=== PATIENT | male | born 1970 | race Hispanic/Latino ===

== ENCOUNTER 2017-03-03 11:20 | Inpatient (IN) | payer MEDICAID ==
[~2017-03-03] VITALS: Ht 170.2 cm; Wt 77.6 kg
[~2017-03-03 11:20] MED LIST: AMLODIPINE BESY10 MG ORAL; ASPIR 8181 MG ORAL; CLONIDINE 0.2M0.2 MG PO; COZAAR50 MG ORAL; DILTIAZEM 24HR120 M1 ORAL; DILTIAZEM 24HR360 M1 ORAL; FOSRENOL1000 MG PO; FUROSEMIDE80 MG ORAL; GLIPIZIDE5 MG ORAL; HYDRALAZINE HCL50 MG ORAL; LANTUS SOL100 UNIT/1 SUBQ; LOSARTAN POTASS50 MG ORAL; METOCLOPRA10 MG/10 M ORAL; NEPHROVITE1 TAB ORAL; NEXIUM40 M2 ORAL; NORVASC5 MG ORAL; PRAVACHOL20 MG ORAL; RENAGEL400 MG ORAL; RENVELA0.8 GM ORAL; TYLENOL650 MG/20. ORAL; ZAROXOLYN5 MG ORAL; ZESTRIL10 M1 ORAL; [UNRECOGNIZED DRUG - OTHER] PO; [UNRECOGNIZED DRUG - OTHER] PO
[2017-03-03 12:19] LABS: BASOPHILS % (AUTO) 1.5 % (0.0-2.0); EOSINOPHILS % (AUTO) 2.8 % (0.0-3.0); LYMPHOCYTES % (AUTO) 11.9 % (20.0-45.0); MEAN CORPUSCULAR HEMOGLOBIN 29.2 PG (27.0-31.0); MEAN CORPUSCULAR HGB CONC 31.3 G/DL (32.0-36.0); MEAN CORPUSCULAR VOLUME 93 FL (80-99); MEAN PLATELET VOLUME 7.1 FL (6.5-10.1); MONOCYTES % (AUTO) 4.8 % (1.0-10.0); PLATELET COUNT 148 K/UL (150-450); RED BLOOD COUNT 3.75 M/UL (4.70-6.10); RED CELL DISTRIBUTION WIDTH 13.9 % (11.6-14.8); WHITE BLOOD COUNT 6.5 K/UL (4.8-10.8)
[2017-03-03 12:32] LABS: INR 1.1 (0.9-1.1)
[2017-03-03 12:37] LABS: TROPONIN I < 0.30 ng/mL (<=0.30)
[2017-03-03 12:40] LABS: CALCIUM 9.1 mg/dL (8.6-10.2); CREATININE 6.7 mg/dL (0.7-1.2); GLOMERULAR FILTRATION RATE 8.9 mL/min (>60); POTASSIUM 4.8 mEQ/L (3.4-4.9)
[2017-03-03 12:50] LABS: CKMB 2.2 ng/mL (< 6.7)
[2017-03-03 13:08] VITALS: BP 181/90
--- NOTE | 2017-03-03 13:44 | Diagnostic Imaging Report ---
Indications: Chest pain Technique: Portable AP chest Findings: Comparison: 06/11/2014 Inspiratory effort has improved. Size of the cardiac silhouette is mildly decreased. Pulmonary vascular redistribution and bilateral interstitial infiltrates are again noted, less severe. No pleural abnormalities demonstrated. IMPRESSION: Bilateral congestive changes, persistent versus recurrent and less severe than on previous exam 3 Alternatively, diffuse interstitial pneumonitis also give this appearance.
[2017-03-03 14:15] VITALS: BP 160/80
[2017-03-03] MEDS ORDERED: Acetaminophen 500mg (ES) tab ORAL ONE (15:30)
--- NOTE | 2017-03-03 15:46 | Emergency Room Report ---
History of Present Illness General Chief Complaint: Chest Pain Source: Patient Present Illness HPI She complains of chest pain that started during dialysis today. He was at rest. He denies recent illness. Denies fever chills. Denies cough or congestion. He denies shortness of breath. He has no other complaints. Allergies: Coded Allergies: No Known Allergies (Unverified , 03/14/14) Patient History Past Medical History: see triage record, DM, HTN, NE, CAD, GERD, CVA/TIA, HIV, renal disease, dialysis Social History: Denies: alcohol use, drug use, smoking Reviewed Nursing Documentation: PMH: Agreed, PSxH: Agreed Nursing Documentation-PMH Hx Cardiac Problems: Yes Hx Hypertension: Yes Hx Pacemaker: No Hx Asthma: No Hx Diabetes: Yes Hx Cancer: No Hx Gastrointestinal Problems: No Hx Dialysis: Yes Hx Neurological Problems: Yes Hx Cerebrovascular Accident: No Hx Seizures: No Hx Dysphasia: Yes - previous during his stroke Review of Systems All Other Systems: negative except mentioned in HPI Physical Exam Vital Signs Date Time Temp Pulse Resp B/P Pulse Ox O2 Delivery O2 Flow Rate FiO2 03/03/17 11:20 98.1 78 155/90 98 Nasal Cannula 2.0 03/03/17 13:08 14 Sp02 EP Interpretation: reviewed, normal General Appearance: no apparent distress, alert, GCS 15, non-toxic Head: normocephalic, atraumatic Eyes: bilateral eye PERRL, bilateral eye normal inspection ENT: hearing grossly normal, normal pharynx, no angioedema, normal voice Neck: full range of motion, supple/symm/no masses Respiratory: chest non-tender, lungs clear, normal breath sounds, speaking full sentences Cardiovascular #1: regular rate, rhythm, no edema Gastrointestinal: normal bowel sounds, non tender, soft, non-distended, no guarding, no rebound Rectal: deferred Musculoskeletal: back normal, normal range of motion Neurologic: alert, oriented x3, responsive, motor strength/tone normal, sensory intact, speech normal Psychiatric: judgement/insight normal, memory normal, mood/affect normal, no suicidal/homicidal ideation Skin: normal color, no rash, warm/dry, well hydrated Medical Decision Making Diagnostic Impression: Primary Impression: Chest pain ER Course This patient presents with nonspecific chest pain. He is high-risk for acute coronary syndrome and unstable angina. Initial workup to include EKG, troponin and chest x-ray show no acute findings. The patient is admitted for further evaluation of his chest pain. Labs Test 03/03/17 11:51 White Blood Count 6.5 K/UL (4.8-10.8) Red Blood Count 3.75 M/UL (4.70-6.10) Hemoglobin 11.0 G/DL (14.2-18.0) Hematocrit 35.0 % (42.0-52.0) Mean Corpuscular Volume 93 FL (80-99) Mean Corpuscular Hemoglobin 29.2 PG (27.0-31.0) Mean Corpuscular Hemoglobin Concent 31.3 G/DL (32.0-36.0) Red Cell Distribution Width 13.9 % (11.6-14.8) Platelet Count 148 K/UL (150-450) Mean Platelet Volume 7.1 FL (6.5-10.1) Neutrophils (%) (Auto) 79.0 % (45.0-75.0) Lymphocytes (%) (Auto) 11.9 % (20.0-45.0) Monocytes (%) (Auto) 4.8 % (1.0-10.0) Eosinophils (%) (Auto) 2.8 % (0.0-3.0) Basophils (%) (Auto) 1.5 % (0.0-2.0) Prothrombin Time 11.0 SEC (9.30-11.50) Prothromb Time International Ratio 1.1 (0.9-1.1) Activated Partial Thromboplast Time 26 SEC (23-33) Sodium Level 138 mEQ/L (135-145) Potassium Level 4.8 mEQ/L (3.4-4.9) Chloride Level 94 mEQ/L (98-107) Carbon Dioxide Level 23 mEQ/L (20-30) Anion Gap 21 (5-15) Blood Urea Nitrogen 35 mg/dL (7-23) Creatinine 6.7 mg/dL (0.7-1.2) Estimat Glomerular Filtration Rate 8.9 mL/min (>60) Glucose Level 204 mg/dL (74-106) Calcium Level 9.1 mg/dL (8.6-10.2) Total Bilirubin 0.5 mg/dL (0.0-1.2) Aspartate Amino Transf (AST/SGOT) 20 U/L (5-40) Alanine Aminotransferase (ALT/SGPT) 11 U/L (3-41) Alkaline Phosphatase 113 U/L (40-129) Total Creatine Kinase 89 U/L (38-174) Creatine Kinase MB 2.2 ng/mL (< 6.7) Creatine Kinase MB Relative Index 2.4 Troponin I < 0.30 ng/mL (<=0.30) Total Protein 8.0 g/dL (6.6-8.7) Albumin 4.1 g/dL (3.5-5.2) Globulin 3.9 g/dL Albumin/Globulin Ratio 1.0 (1.0-2.7) EKG Diagnostic Results Rate: normal Rhythm: NSR ST Segments: other Other Impression NSST findings. Rhythm Strip Diag. Results EP Interpretation: yes Rate: 90's Rhythm: NSR, no PVC's, no ectopy Chest X-Ray Diagnostic Results EP Interpretation: Yes Findings: no consolidation, no effusion, no pneumothorax Number of Views: 1 Other Impression Bilateral mild pulmonary congestion. Last Vital Signs Date Time Temp Pulse Resp B/P Pulse Ox O2 Delivery O2 Flow Rate FiO2 03/03/17 14:15 98.1 95 16 160/80 99 Room Air 03/03/17 11:20 2.0 Disposition: ADMITTED INPATIENT Condition: Stable Referrals: NON PHYSICIAN (PCP) BIMAL FIGUEROA D.O. Mar 03, 2017 15:46
[2017-03-03] MEDS ORDERED: UNOBMED (17:56)
[2017-03-03 17:57] VITALS: BP 177/86
[2017-03-03] MEDS ORDERED: Mylanta II UD 30ml ORAL PRN (19:00)
[2017-03-03] MEDS ORDERED: Zolpidem 5mg tab ORAL PRN (19:00)
[2017-03-03] MEDS ORDERED: Miralax 17gm pkt ORAL PRN (19:00)
[2017-03-03] MEDS ORDERED: DuoNeb 0.5-3(2.5)mg/3ml neb HHN PRN (19:00)
[2017-03-03] MEDS ORDERED: Morphine Sulfate 2mg/ml Inj IVP PRN (19:00)
[2017-03-03 20:00] VITALS: BP 168/95
[2017-03-03] MEDS: Heparin 5000 units/ml inj SUBQ SCH (20:39)
[2017-03-03] MEDS: NovoLOG Insulin Flexpen SUBQ SCH (20:42)
[2017-03-03 20:51] LABS: TROPONIN I < 0.30 ng/mL (<=0.30)
[2017-03-04] VITALS: BP 145/86
[2017-03-04 04:00] VITALS: BP 157/89
[2017-03-04] MEDS: NovoLOG Insulin Flexpen SUBQ SCH ×4 (05:33→21:04)
[2017-03-04 07:43] VITALS: BP 158/96
[2017-03-04 07:43] LABS: BASOPHILS % (AUTO) 1.7 % (0.0-2.0); EOSINOPHILS % (AUTO) 4.6 % (0.0-3.0); LYMPHOCYTES % (AUTO) 21.2 % (20.0-45.0); MEAN CORPUSCULAR HEMOGLOBIN 29.6 PG (27.0-31.0); MEAN CORPUSCULAR HGB CONC 31.4 G/DL (32.0-36.0); MEAN CORPUSCULAR VOLUME 94 FL (80-99); MONOCYTES % (AUTO) 5.5 % (1.0-10.0); NEUTROPHILS % (AUTO) 67.1 % (45.0-75.0); PLATELET COUNT 137 K/UL (150-450); RED CELL DISTRIBUTION WIDTH 14.5 % (11.6-14.8); WHITE BLOOD COUNT 4.9 K/UL (4.8-10.8)
[2017-03-04 08:04] LABS: TROPONIN I < 0.30 ng/mL (<=0.30)
[2017-03-04 08:18] LABS: THYROID STIMULATING HORMONE 1.9 uIU/mL (0.300-4.500)
[2017-03-04 08:20] LABS: ALBUMIN/GLOBULIN RATIO 1.2 (1.0-2.7); CALCIUM 9.2 mg/dL (8.6-10.2); CHOLESTEROL/HDL RATIO 3.5 (3.3-4.4); CREATININE 8.5 mg/dL (0.7-1.2); GLOMERULAR FILTRATION RATE 6.7 mL/min (>60); POTASSIUM 5.5 mEQ/L (3.4-4.9); TOTAL PROTEIN 7.5 g/dL (6.6-8.7)
[2017-03-04 08:52] LABS: HEMOGLOBIN A1C 9.8 % (< 6.0)
[2017-03-04] MEDS: Losartan 50mg tab ORAL SCH (09:00)
[2017-03-04] MEDS: Heparin 5000 units/ml inj SUBQ SCH ×2 (09:00→21:03)
[2017-03-04] MEDS: Diltiazem CD 120mg cap ORAL SCH (09:02)
--- NOTE | 2017-03-04 10:59 | Consultation ---
Consult Note Consult Note asked to evaluate for dialysis management Chief Complaint: Chest Pain She complains of chest pain that started during dialysis today. He was at rest. He denies recent illness. Denies fever chills. Denies cough or congestion. He denies shortness of breath. He has no other complaints. Allergies: Coded Allergies: No Known Allergies (Unverified , 03/14/14) Past Medical History: see triage record, DM, HTN, MT, CAD, GERD, CVA/TIA, HIV, renal disease, dialysis Social History: Denies: alcohol use, drug use, smoking Reviewed Nursing Documentation: PMH: Agreed, PSxH: Agreed Nursing Documentation-PMH Hx Cardiac Problems: Yes Hx Hypertension: Yes Hx Diabetes: Yes Hx Dialysis: Yes Hx Neurological Problems: Yes Hx Dysphasia: Yes - previous during his stroke patient interviewed, examined data reviewed Assessment/Plan status: ESRD HTN DM HIV CVA MT Plan : HD in [place] M[place] Mar 04, 2017 10:59
[2017-03-04 11:29] VITALS: BP 155/92
[2017-03-04] MEDS ORDERED: Sodium Polystyrene Sulfonate 15gm Powder ORAL ONE (12:00)
--- NOTE | 2017-03-04 15:09 | History and Physical ---
History of Present Illness General Date patient seen: Mar 04, 2017 Reason for Hospitalization: Chest Pain Present Illness HPI 47 year old male with hx of ESRD, on HD, HIV, presented to [facility] with CC of chest pain that started during dialysis. He was at rest. He denies recent illness. Denies fever chills. Denies cough or congestion. He denies shortness of breath. He has no other complaints. He is admitted to telemetry for further evaluation. Allergies: Coded Allergies: No Known Allergies (Unverified , 03/14/14) Medication History Scheduled Diltiazem Hcl* (Diltiazem 24HR Er*), 360 MG ORAL DAILY, (Reported) Lanthanum Carbonate (Fosrenol), 1,000 MG PO AC, (Reported) Losartan Potassium* (Cozaar*), 100 MG ORAL DAILY, (Reported) Metoclopramide Hcl* (Metoclopramide Hcl*), 10 MG ORAL ACHS, (Reported) Sevelamer HCl (Renagel), 800 MG ORAL THREE TIMES A DAY, (Reported) Vitamin B Cmplx/Vit C/Folic AC (Nephro-Lakshmi Tablet), 1 TAB ORAL DAILY, (Reported ) [Keynard], 81 PO DAILY, (Reported) [travastatin], 40 MG PO HS, (Reported) Discontinued Medications Unable to Obtain Medications (Unable To Obtain Meds), (Reported) Discontinued Reason: Therapy completed Patient History Healthcare decision maker Resuscitation status Full Code Advanced Directive on File Past Medical/Surgical History Past Medical/Surgical History: (1) HTN (hypertension) (2) ESRD (end stage renal disease) on dialysis Review of Systems All Other Systems: negative except mentioned in HPI Physical Exam General Appearance: WD/WN Lines, tubes and drains: peripheral HEENT: normocephalic, anicteric Neck: non-tender, normal alignment Respiratory/Chest: chest wall non-tender, lungs clear Cardiovascular/Chest: normal peripheral pulses, normal rate Abdomen: normal bowel sounds, non tender Last 24 Hour Vital Signs Date Time Temp Pulse Resp B/P Pulse Ox O2 Delivery O2 Flow Rate FiO2 03/04/17 11:29 97.0 75 20 155/92 100 Room Air 03/04/17 09:02 67 158/96 03/04/17 09:00 158/96 03/04/17 08:00 69 03/04/17 07:43 97.3 67 18 158/96 98 Room Air 03/04/17 04:00 97.9 69 18 157/89 98 Room Air 2.0 03/04/17 04:00 67 03/04/17 02:54 78 18 Room Air 03/04/17 00:00 97.9 68 16 145/86 98 Mechanical Ventilator 2.0 03/04/17 00:00 66 03/03/17 20:41 168/95 03/03/17 20:00 97.9 78 16 168/95 98 Room Air 2.0 03/03/17 18:17 98.1 74 12 177/86 98 Room Air 2.0 03/03/17 17:57 98.1 74 12 177/86 98 Room Air 03/03/17 17:55 98.1 Intake and Output 03/03/17 03/04/17 19:00 07:00 # Voids 1 # Bowel Movements 1 Laboratory Tests Test 03/03/17 20:00 03/04/17 06:35 Troponin I < 0.30 ng/mL (<=0.30) < 0.30 ng/mL (<=0.30) White Blood Count 4.9 K/UL (4.8-10.8) Red Blood Count 3.40 M/UL (4.70-6.10) L Hemoglobin 10.1 G/DL (14.2-18.0) L Hematocrit 32.1 % (42.0-52.0) L Mean Corpuscular Volume 94 FL (80-99) Mean Corpuscular Hemoglobin 29.6 PG (27.0-31.0) Mean Corpuscular Hemoglobin Concent 31.4 G/DL (32.0-36.0) L Red Cell Distribution Width 14.5 % (11.6-14.8) Platelet Count 137 K/UL (150-450) L Mean Platelet Volume 7.0 FL (6.5-10.1) Neutrophils (%) (Auto) 67.1 % (45.0-75.0) Lymphocytes (%) (Auto) 21.2 % (20.0-45.0) Monocytes (%) (Auto) 5.5 % (1.0-10.0) Eosinophils (%) (Auto) 4.6 % (0.0-3.0) H Basophils (%) (Auto) 1.7 % (0.0-2.0) Sodium Level 141 mEQ/L (135-145) Potassium Level 5.5 mEQ/L (3.4-4.9) H Chloride Level 95 mEQ/L (98-107) L Carbon Dioxide Level 26 mEQ/L (20-30) Anion Gap 20 (5-15) H Blood Urea Nitrogen 47 mg/dL (7-23) H Creatinine 8.5 mg/dL (0.7-1.2) H Estimat Glomerular Filtration Rate 6.7 mL/min (>60) Glucose Level 130 mg/dL (74-106) H Hemoglobin A1c 9.8 % (< 6.0) H Calcium Level 9.2 mg/dL (8.6-10.2) Phosphorus Level 4.4 mg/dL (2.5-4.8) Total Bilirubin 0.5 mg/dL (0.0-1.2) Aspartate Amino Transf (AST/SGOT) 15 U/L (5-40) Alanine Aminotransferase (ALT/SGPT) 11 U/L (3-41) Alkaline Phosphatase 100 U/L (40-129) Total Protein 7.5 g/dL (6.6-8.7) Albumin 4.2 g/dL (3.5-5.2) Globulin 3.3 g/dL Albumin/Globulin Ratio 1.2 (1.0-2.7) Triglycerides Level 130 mg/dL (< 150) Cholesterol Level 95 mg/dL (< 200) LDL Cholesterol 42 mg/dL (60-99) L HDL Cholesterol 27 mg/dL (> 60) Cholesterol/HDL Ratio 3.5 (3.3-4.4) Thyroid Stimulating Hormone (TSH) 1.900 uIU/mL (0.300-4.500) Height (Feet): 5 Height (Inches): 7.00 Weight (Pounds): 171 Medications Current Medications Medications (Trade) Dose Ordered Sig/Kj Route PRN Reason Start Time Stop Time Status Last Admin Dose Admin Acetaminophen (Tylenol) 650 mg Q4H PRN ORAL fever 03/03/17 19:00 04/02/17 18:59 Albuterol/ Ipratropium (DuoNeb 0.5-3(2.5)mg/3ml) 3 ml Q6HRT PRN HHN dyspnea 03/03/17 19:00 03/08/17 18:59 Clonidine HCl (Catapres) 0.1 mg Q4H PRN ORAL SBP > 160 03/03/17 19:00 04/02/17 18:59 03/03/17 20:41 Dextrose (Dextrose 50%) STAT PRN IV Hypoglycemia 03/03/17 19:00 04/02/17 18:59 Diltiazem HCl (Cardizem CD) 360 mg DAILY ORAL 03/04/17 09:00 04/03/17 08:59 03/04/17 09:02 Heparin Sodium (Porcine) (Heparin 5000 units/ml) 5,000 units EVERY 12 HOURS SUBQ 03/03/17 21:00 04/02/17 20:59 03/03/17 20:39 Insulin Aspart (NovoLOG) BEFORE MEALS AND HS SUBQ 03/03/17 21:00 04/02/17 20:59 03/04/17 11:27 Losartan Potassium (Cozaar) 100 mg DAILY ORAL 03/04/17 09:00 04/03/17 08:59 03/04/17 09:00 Metoclopramide HCl (Reglan) 10 mg QHS ORAL 03/04/17 21:00 04/03/17 20:59 Morphine Sulfate (Morphine Sulfate) 1 mg Q4H PRN IVP PAIN 4-10 03/03/17 19:00 03/10/17 18:59 Ondansetron HCl (Zofran) 4 mg Q6H PRN IVP Nausea & Vomiting 03/03/17 19:00 04/02/17 18:59 Polyethylene Glycol (Miralax) 17 gm HSPRN PRN ORAL Constipation 03/03/17 19:00 04/02/17 18:59 Sevelamer Carbonate (Renvela) 1,600 mg THREE TIMES A DAY ORAL 03/04/17 13:00 04/03/17 12:59 03/04/17 11:59 Zolpidem Tartrate (Ambien) 5 mg HSPRN PRN ORAL Insomnia 03/03/17 19:00 04/02/17 18:59 Assessment/Plan Problem List: (1) Chest pain ICD Codes: R07.9 - Chest pain, unspecified SNOMED: 85736895 (2) Anemia in chronic renal disease ICD Codes: D63.1 - Anemia in chronic kidney disease; N03.9 - Anemia in chronic renal disease SNOMED: 813003711 (3) HTN (hypertension) ICD Codes: I10 - HTN (hypertension) SNOMED: 68178273 (4) ESRD (end stage renal disease) on dialysis Assessment/Plan serial ekg Hd cardio to see serial troponin, check echo LEVAR HOWARD Mar 04, 2017 15:09
[2017-03-04 15:34] VITALS: BP 150/91
--- NOTE | 2017-03-04 18:29 | Cardiology Progress Note ---
Assessment/Plan Assessment/Plan cp atypic prolonged yet no myonecroisis cad ? pci recently dm htn hyperlipidmiea hs esrd echo to be reviewed norml wall motion in light of rf adn recent pci and pt claim of similarity of pain to prior cp will have perfusion iamgin aracelis ist is entirely possible that this pain is chest wall related n9oted t iversion infeiro leads [id number] Objective Last 24 Hour Vital Signs Date Time Temp Pulse Resp B/P Pulse Ox O2 Delivery O2 Flow Rate FiO2 03/04/17 16:00 62 03/04/17 15:34 97.9 64 18 150/91 97 Room Air 03/04/17 12:00 65 03/04/17 11:29 97.0 75 20 155/92 100 Room Air 03/04/17 09:02 67 158/96 03/04/17 09:00 158/96 03/04/17 08:00 69 03/04/17 07:43 97.3 67 18 158/96 98 Room Air 03/04/17 04:00 97.9 69 18 157/89 98 Room Air 2.0 03/04/17 04:00 67 03/04/17 02:54 78 18 Room Air 03/04/17 00:00 97.9 68 16 145/86 98 Mechanical Ventilator 2.0 03/04/17 00:00 66 03/03/17 20:41 168/95 03/03/17 20:00 97.9 78 16 168/95 98 Room Air 2.0 Intake and Output 03/03/17 03/04/17 19:00 07:00 # Voids 1 # Bowel Movements 1 Laboratory Tests Test 03/03/17 20:00 03/04/17 06:35 Troponin I < 0.30 ng/mL (<=0.30) < 0.30 ng/mL (<=0.30) White Blood Count 4.9 K/UL (4.8-10.8) Red Blood Count 3.40 M/UL (4.70-6.10) L Hemoglobin 10.1 G/DL (14.2-18.0) L Hematocrit 32.1 % (42.0-52.0) L Mean Corpuscular Volume 94 FL (80-99) Mean Corpuscular Hemoglobin 29.6 PG (27.0-31.0) Mean Corpuscular Hemoglobin Concent 31.4 G/DL (32.0-36.0) L Red Cell Distribution Width 14.5 % (11.6-14.8) Platelet Count 137 K/UL (150-450) L Mean Platelet Volume 7.0 FL (6.5-10.1) Neutrophils (%) (Auto) 67.1 % (45.0-75.0) Lymphocytes (%) (Auto) 21.2 % (20.0-45.0) Monocytes (%) (Auto) 5.5 % (1.0-10.0) Eosinophils (%) (Auto) 4.6 % (0.0-3.0) H Basophils (%) (Auto) 1.7 % (0.0-2.0) Sodium Level 141 mEQ/L (135-145) Potassium Level 5.5 mEQ/L (3.4-4.9) H Chloride Level 95 mEQ/L (98-107) L Carbon Dioxide Level 26 mEQ/L (20-30) Anion Gap 20 (5-15) H Blood Urea Nitrogen 47 mg/dL (7-23) H Creatinine 8.5 mg/dL (0.7-1.2) H Estimat Glomerular Filtration Rate 6.7 mL/min (>60) Glucose Level 130 mg/dL (74-106) H Hemoglobin A1c 9.8 % (< 6.0) H Calcium Level 9.2 mg/dL (8.6-10.2) Phosphorus Level 4.4 mg/dL (2.5-4.8) Total Bilirubin 0.5 mg/dL (0.0-1.2) Aspartate Amino Transf (AST/SGOT) 15 U/L (5-40) Alanine Aminotransferase (ALT/SGPT) 11 U/L (3-41) Alkaline Phosphatase 100 U/L (40-129) Total Protein 7.5 g/dL (6.6-8.7) Albumin 4.2 g/dL (3.5-5.2) Globulin 3.3 g/dL Albumin/Globulin Ratio 1.2 (1.0-2.7) Triglycerides Level 130 mg/dL (< 150) Cholesterol Level 95 mg/dL (< 200) LDL Cholesterol 42 mg/dL (60-99) L HDL Cholesterol 27 mg/dL (> 60) Cholesterol/HDL Ratio 3.5 (3.3-4.4) Thyroid Stimulating Hormone (TSH) 1.900 uIU/mL (0.300-4.500) JUANITA RAE Mar 04, 2017 18:29
[2017-03-04] MEDS ORDERED: Renagel 400mg cap ORAL SCH (19:30)
[2017-03-04 20:17] VITALS: BP 145/84
[2017-03-05] VITALS (10 sets, daily range): BP systolic 148–173; BP diastolic 85–100
--- NOTE | 2017-03-05 00:38 | Consultation ---
DATE OF CONSULTATION: 03/04/2017 CARDIOLOGY CONSULTATION CONSULTING PHYSICIAN: Ronnell Daniel M.D. REFERRING PHYSICIAN: Oswaldo Guzman M.D. REASON FOR REFERRAL: Chest pain. HISTORY OF PRESENT ILLNESS: This is an elderly gentleman, whose information is obtained from the patient directly and from reviewing old charts and one of the nursing staff, who speaks Zimbabwean, has interpreted. The patient does speak some Slovak. Apparently, the patient came into the hospital because of pain that has been going on since Thursday, most of the time Thursday and Thursday, although improved and then it came back again. It is on the left side of the chest and that seemed to get worse when he takes a deep breath or cough or twist or turns or he is touching that area. It is not necessarily when walking. He has similar pain he states a month ago when he was presented to the outside hospital and was told that he has had a heart attack. He was subsequently transferred to another hospital where he had some kind of a cardiac procedure performed, although he is not sure what was done. Nevertheless, he thinks it was a blood vessel that was clogged up and they opened. So, he may have had a percutaneous coronary intervention. He does not have any PND. He does have occasional dizziness, shortness of breath, but that is not frequent. He has occasional dizziness when he sits or stands up. He does not really have any heart pounding or palpitations. The pain was a constant sensation, sharp on the left side of the chest, but he thinks it is similar to what he had when he presented to the other hospital with a heart attack. PAST MEDICAL HISTORY: Positive for diabetes, high blood pressure, high cholesterol, and heart attack. No cancer. No stroke. No hepatitis or tuberculosis. No asthma or emphysema. No ulcers. He does have end-stage renal disease, on hemodialysis for approximately 9 years. No liver problems. No thyroid problems. His past medical history also is positive for history of orthostatic symptoms, C. difficile colitis, previous history of questionable systolic dysfunction based on echocardiogram, but not by perfusion imaging and history of cerebrovascular accident number of years ago. I have apparently seen this patient approximately three years ago. ALLERGIES: He is not allergic to any medications. SOCIAL HISTORY: He does not smoke at the present time, although he used to before. He does not drink alcoholic beverages. No drug use. REVIEW OF SYSTEMS: Gastrointestinal: He has had a lot of nausea yesterday, but no vomiting, no diarrhea, but he had frequent bowel movement yesterday. Genitourinary: He does not make any urine. Pulmonary: He has some coughing. Constitutional: No fever, chills, or night sweats. Neurologic: No numbness or tingling sensation. No paralysis in the arms or legs. PHYSICAL EXAMINATION: GENERAL: Shows to be elderly gentleman, blind. NECK: Supple. No jugular venous distention. LUNGS: Appear to be clear to auscultation and percussion. CARDIAC: S1 is normal. S2 is normal. Regular rate and rhythm. No heaves, thrills, gallops, or rubs are noted. The patient's chest wall is tender to palpation, not clear whether this is the same pain that he has been experiencing since yesterday or not, however. ABDOMEN: Soft and nontender. Positive bowel sounds. EXTREMITIES: There is no clubbing, cyanosis, nor is there any edema. NEUROLOGIC: He is awake, alert, responsive, and in no apparent respiratory distress. LABORATORY AND DIAGNOSTIC DATA: White count 4.9, hemoglobin 10.1, and platelet count of 137,000. His chemistry panel, sodium is 141, potassium 5.5, chloride 95, bicarb 26, BUN of 47, creatinine 8.5, glucose of 130, calcium 9.2. Liver function tests are normal. Three sets of cardiac enzymes, all are negative. The total cholesterol of 95 with a LDL of 42 and HDL of 27. TSH of 1.9. Phosphorus is 4.2. Coags, INR 1.1 and a PTT of 26. A chest x-ray performed yesterday shows bilateral congestive changes, less severe and prior interstitial pneumonitis also is a possibility in the differential. The patient's electrocardiogram shows normal sinus rhythm with T-wave inversions in lead 2, 3, and aVF that have been present on this EKG today. These EKG changes are actually new compared to the EKG that was performed back in May of 2014. ASSESSMENT: 1. Atypical chest pain with prolonged, yet no evidence of myonecrosis. 2. Coronary artery disease with questionable recent percutaneous coronary intervention. 3. Diabetes mellitus. 4. Hypertension. 5. Hyperlipidemia. 6. End-stage renal disease, on hemodialysis. PLAN: Dr. Guzman, this patient was seen in cardiac consultation. The patient's chest wall is tender to palpation, however, not clear if this is the pain that he has been experiencing since Thursday. Nevertheless, despite the fact that he has had a prolonged episode of chest pain for approximately two days, the cardiac enzymes are negative. The EKG shows some abnormality that is new. I think we should proceed in the direction of the perfusion imaging to identify whether there is any significant ischemia requiring recurrent PCI. Ronnell Daniel M.D. DR: GREGORIO JOB#: [id number] CC:
[2017-03-05] MEDS: NovoLOG Insulin Flexpen SUBQ SCH ×4 (06:37→22:43)
[2017-03-05] MEDS: Heparin 5000 units/ml inj SUBQ SCH ×2 (09:00→22:30)
[2017-03-05] MEDS: Losartan 50mg tab ORAL SCH (09:00)
[2017-03-05] MEDS: Diltiazem CD 120mg cap ORAL SCH (09:00)
[2017-03-05 09:49] LABS: TROPONIN I 3.59 ng/mL (<=0.30)
[2017-03-05] MEDS: Aspirin Baby 81mg ORAL SCH (11:25)
--- NOTE | 2017-03-05 12:09 | General Progress Note ---
Assessment/Plan Status: stable Assessment/Plan status; - ESRD - HTN - Anemia of CKD - DM - ?? HIV - CVA - SD Plan: HD and UFis in process Subjective ROS Limited/Unobtainable: No Constitutional: Reports: malaise Allergies: Coded Allergies: No Known Allergies (Unverified , 03/14/14) Objective Last 24 Hour Vital Signs Date Time Temp Pulse Resp B/P Pulse Ox O2 Delivery O2 Flow Rate FiO2 03/05/17 09:47 80 03/05/17 08:42 97.3 69 18 156/98 97 Room Air 03/05/17 07:40 Room Air 03/05/17 04:25 97.5 63 20 148/88 96 Room Air 03/05/17 04:00 61 03/05/17 00:15 97.9 66 20 154/89 96 Room Air 03/05/17 00:00 68 03/04/17 20:17 97.7 62 20 145/84 97 Room Air 03/04/17 20:00 63 03/04/17 19:49 63 18 Room Air 03/04/17 16:00 62 03/04/17 15:34 97.9 64 18 150/91 97 Room Air Intake and Output 03/04/17 03/05/17 19:00 07:00 Intake Total 360 ml Balance 360 ml Intake Oral 360 ml # Bowel Movements 5 Laboratory Tests 03/05/17 09:15: Troponin I 3.59*H Height (Feet): 5 Height (Inches): 7.00 Weight (Pounds): 171 General Appearance: no apparent distress Cardiovascular: normal rate Respiratory/Chest: decreased breath sounds Abdomen: distended GERA NICOLE Mar 05, 2017 12:09
--- NOTE | 2017-03-05 12:27 | Pulmonology Progress Note ---
Assessment/Plan Problems: (1) Chest pain (2) Anemia in chronic renal disease (3) HTN (hypertension) (4) ESRD (end stage renal disease) on dialysis Assessment/Plan stress test canceled because of positive troponin Plavix started f/u cardio recommendations HD bu nephrology Subjective ROS Limited/Unobtainable: No Interval Events: troponin jumped to 3, asymptomatic Allergies: Coded Allergies: No Known Allergies (Unverified , 03/14/14) Objective Last 24 Hour Vital Signs Date Time Temp Pulse Resp B/P Pulse Ox O2 Delivery O2 Flow Rate FiO2 03/05/17 09:47 80 03/05/17 08:42 97.3 69 18 156/98 97 Room Air 03/05/17 07:40 Room Air 03/05/17 04:25 97.5 63 20 148/88 96 Room Air 03/05/17 04:00 61 03/05/17 00:15 97.9 66 20 154/89 96 Room Air 03/05/17 00:00 68 03/04/17 20:17 97.7 62 20 145/84 97 Room Air 03/04/17 20:00 63 03/04/17 19:49 63 18 Room Air 03/04/17 16:00 62 03/04/17 15:34 97.9 64 18 150/91 97 Room Air Intake and Output 03/04/17 03/05/17 19:00 07:00 Intake Total 360 ml Balance 360 ml Intake Oral 360 ml # Bowel Movements 5 General Appearance: WD/WN HEENT: normocephalic, atraumatic Respiratory/Chest: chest wall non-tender, lungs clear Cardiovascular: normal peripheral pulses, normal rate Abdomen: normal bowel sounds, soft, non tender Genitourinary: normal external genitalia Extremities: no cyanosis Skin: no rash 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, no motor/sensory deficits Laboratory Tests 03/05/17 09:15: Troponin I 3.59*H Current Medications Medications (Trade) Dose Ordered Sig/Kj Route PRN Reason Start Time Stop Time Status Last Admin Dose Admin Acetaminophen (Tylenol) 650 mg Q4H PRN ORAL fever 03/03/17 19:00 04/02/17 18:59 03/04/17 17:57 Albuterol/ Ipratropium (DuoNeb 0.5-3(2.5)mg/3ml) 3 ml Q6HRT PRN HHN dyspnea 03/03/17 19:00 03/08/17 18:59 Aspirin (ASA) 81 mg DAILY ORAL 03/05/17 11:00 04/04/17 10:59 03/05/17 11:25 Clonidine HCl (Catapres) 0.1 mg Q4H PRN ORAL SBP > 160 03/03/17 19:00 04/02/17 18:59 03/03/17 20:41 Clopidogrel Bisulfate (Plavix) 75 mg DAILY ORAL 03/05/17 11:00 04/04/17 10:59 03/05/17 11:25 Dextrose (Dextrose 50%) STAT PRN IV Hypoglycemia 03/03/17 19:00 04/02/17 18:59 Diltiazem HCl (Cardizem CD) 360 mg DAILY ORAL 03/04/17 09:00 04/03/17 08:59 03/04/17 09:02 Heparin Sodium (Porcine) (Heparin 5000 units/ml) 5,000 units EVERY 12 HOURS SUBQ 03/03/17 21:00 04/02/17 20:59 03/04/17 21:03 Insulin Aspart (NovoLOG) BEFORE MEALS AND HS SUBQ 03/03/17 21:00 04/02/17 20:59 03/05/17 06:37 Losartan Potassium (Cozaar) 100 mg DAILY ORAL 03/04/17 09:00 04/03/17 08:59 03/04/17 09:00 Metoclopramide HCl (Reglan) 10 mg QHS ORAL 03/04/17 21:00 04/03/17 20:59 03/04/17 20:58 Morphine Sulfate (Morphine Sulfate) 1 mg Q4H PRN IVP PAIN 4-10 03/03/17 19:00 03/10/17 18:59 Ondansetron HCl (Zofran) 4 mg Q6H PRN IVP Nausea & Vomiting 03/03/17 19:00 04/02/17 18:59 Polyethylene Glycol (Miralax) 17 gm HSPRN PRN ORAL Constipation 03/03/17 19:00 04/02/17 18:59 Sevelamer Carbonate (Renvela) 1,600 mg THREE TIMES A DAY ORAL 03/04/17 13:00 04/03/17 12:59 03/04/17 17:56 Zolpidem Tartrate (Ambien) 5 mg HSPRN PRN ORAL Insomnia 03/03/17 19:00 04/02/17 18:59 LEVAR HOWARD Mar 05, 2017 12:27
[2017-03-05 17:05] LABS: TROPONIN I < 0.30 ng/mL (<=0.30)
--- NOTE | 2017-03-05 17:37 | Cardiology Progress Note ---
Assessment/Plan Assessment/Plan 1. Atypical chest pain with prolonged, trop peak 3.59 thsi am suggestive of NSTEMI 2. Coronary artery disease with questionable recent percutaneous coronary intervention. 3. Diabetes mellitus. 4. Hypertension. 5. Hyperlipidemia. 6. End-stage renal disease, on hemodialysis. echo to be reviewed norml wall motion rn called me trop no 2 increased to 3.59 so stres test cancelled pt to be transferred to cath facility 3rd trop now completely normal that would be very unusual for trop to go form 3.59 to less than 0.3 in that short time i suspect one of the 2 lab erroneous have asked for repeat level now and to see if able to rerun trop form ealier today asa and plavix statin bp is still sig elevated will dc cozaar and start on either stronger arbs (not available here) or acei lisinopril already on max dose of dilt d/ rn adn dr mckeon Subjective Cardiovascular: Reports: chest pain - some cp earlier to day , Denies: lightheadedness, palpitations Respiratory: Denies: shortness of breath Gastrointestinal/Abdominal: Denies: abdomen distended Objective Last 24 Hour Vital Signs Date Time Temp Pulse Resp B/P Pulse Ox O2 Delivery O2 Flow Rate FiO2 03/05/17 17:16 161/84 03/05/17 16:00 70 03/05/17 15:41 96.3 77 18 160/90 95 Room Air 03/05/17 14:00 76 18 157/86 98 Room Air 03/05/17 13:20 79 18 170/92 77 Room Air 03/05/17 12:42 173/100 03/05/17 12:30 80 18 173/100 97 Room Air 03/05/17 12:19 97.0 78 18 162/85 98 Room Air 03/05/17 12:00 82 03/05/17 11:15 Room Air 03/05/17 09:47 80 03/05/17 08:42 97.3 69 18 156/98 97 Room Air 03/05/17 07:40 Room Air 03/05/17 04:25 97.5 63 20 148/88 96 Room Air 03/05/17 04:00 61 03/05/17 00:15 97.9 66 20 154/89 96 Room Air 03/05/17 00:00 68 03/04/17 20:17 97.7 62 20 145/84 97 Room Air 03/04/17 20:00 63 03/04/17 19:49 63 18 Room Air General Appearance: no apparent distress, alert Neck: supple Cardiovascular: normal rate, regular rhythm Respiratory/Chest: lungs clear Abdomen: normal bowel sounds, non tender, soft Extremities: no swelling Intake and Output 03/04/17 03/05/17 19:00 07:00 Intake Total 360 ml Balance 360 ml Intake Oral 360 ml # Bowel Movements 5 Laboratory Tests Test 03/05/17 09:15 03/05/17 16:00 Troponin I 3.59 ng/mL (<=0.30) *H < 0.30 ng/mL (<=0.30) HIV (1&2) Antibody Rapid Negative (NEGATIVE) JUANITA RAE Mar 05, 2017 17:37
[2017-03-05 20:36] LABS: TROPONIN I < 0.30 ng/mL (<=0.30)
[2017-03-06 00:08] VITALS: BP 155/90
[2017-03-06 00:37] LABS: TROPONIN I < 0.30 ng/mL (<=0.30)
[2017-03-06 04:40] VITALS: BP 155/90
[2017-03-06] MEDS: NovoLOG Insulin Flexpen SUBQ SCH ×4 (06:03→21:11)
[2017-03-06 08:01] VITALS: BP 148/87
[2017-03-06] MEDS: Heparin 5000 units/ml inj SUBQ SCH ×2 (09:00→21:12)
[2017-03-06] MEDS: Aspirin Baby 81mg ORAL SCH (09:39)
[2017-03-06] MEDS: Diltiazem CD 120mg cap ORAL SCH (09:40)
[2017-03-06] MEDS: Losartan 50mg tab ORAL SCH (09:41)
--- NOTE | 2017-03-06 09:48 | General Progress Note ---
Assessment/Plan Assessment/Plan status; - ESRD - HTN - Anemia of CKD - DM - CVA - [place] Plan: HD in am- HIV negative Subjective ROS Limited/Unobtainable: No Allergies: Coded Allergies: No Known Allergies (Unverified , 03/14/14) Objective Last 24 Hour Vital Signs Date Time Temp Pulse Resp B/P Pulse Ox O2 Delivery O2 Flow Rate FiO2 03/06/17 09:41 148/87 03/06/17 09:40 66 148/87 03/06/17 08:01 96.8 66 20 148/87 97 Room Air 03/06/17 04:40 97.9 66 20 155/90 95 Room Air 03/06/17 04:00 61 03/06/17 00:08 97.9 66 20 155/90 95 Room Air 03/06/17 00:00 63 03/05/17 20:14 74 18 Room Air 21 03/05/17 20:00 66 03/05/17 20:00 97.9 71 20 159/89 97 Room Air 03/05/17 18:07 76 18 154/94 97 Room Air 03/05/17 17:16 161/84 03/05/17 16:00 70 03/05/17 15:41 96.3 77 18 160/90 95 Room Air 03/05/17 14:00 76 18 157/86 98 Room Air 03/05/17 13:20 79 18 170/92 97 Room Air 03/05/17 12:42 173/100 03/05/17 12:30 80 18 173/100 97 Room Air 03/05/17 12:19 97.0 78 18 162/85 98 Room Air 03/05/17 12:00 82 03/05/17 11:15 Room Air 03/05/17 09:47 80 Intake and Output 03/05/17 03/06/17 19:00 07:00 Intake Total 240 ml Output Total 3247 ml Balance -3007 ml Intake Oral 240 ml Output Stool Total 2 ml Hemodialysis UF 3245 ml # Voids 1 # Bowel Movements 1 Laboratory Tests 03/05/17 16:00: Troponin I < 0.30, HIV (1&2) Antibody Rapid Negative 03/05/17 19:30: Troponin I < 0.30 03/05/17 23:40: Troponin I < 0.30 Height (Feet): 5 Height (Inches): 7.00 Weight (Pounds): 171 General Appearance: no apparent distress Objective no change in PE GERA NICOLE Mar 06, 2017 09:48
[2017-03-06 11:21] VITALS: BP 153/90
--- NOTE | 2017-03-06 13:20 | Cardiology Report ---
APPROVED REPORT EKG Measurement Heart [id number] Normal sinus rhythm Rightward axis T wave abnormality, consider inferior ischemia Prolonged QT Abnormal ECG
[2017-03-06 15:27] VITALS: BP 138/67
[2017-03-06] MEDS ORDERED: PLAVIX75 MG ORAL (15:36)
--- NOTE | 2017-03-06 15:41 | Pulmonology Progress Note ---
Assessment/Plan Problems: (1) Chest pain (2) Anemia in chronic renal disease (3) HTN (hypertension) (4) ESRD (end stage renal disease) on dialysis Assessment/Plan needs to have stress testing. Plavix started f/u cardio recommendations HD bu nephrology Subjective ROS Limited/Unobtainable: No Constitutional: Reports: no symptoms HEENT: Repors: no symptoms Respiratory: Reports: no symptoms Cardiovascular: Reports: no symptoms Allergies: Coded Allergies: No Known Allergies (Unverified , 03/14/14) Objective Last 24 Hour Vital Signs Date Time Temp Pulse Resp B/P Pulse Ox O2 Delivery O2 Flow Rate FiO2 03/06/17 15:27 97.2 53 20 138/67 96 Room Air 03/06/17 12:00 68 03/06/17 11:21 97.7 68 20 153/90 97 Room Air 03/06/17 09:41 148/87 03/06/17 09:40 66 148/87 03/06/17 08:01 96.8 66 20 148/87 97 Room Air 03/06/17 08:00 70 03/06/17 04:40 97.9 66 20 155/90 95 Room Air 03/06/17 04:00 61 03/06/17 00:08 97.9 66 20 155/90 95 Room Air 03/06/17 00:00 63 03/05/17 20:14 74 18 Room Air 21 03/05/17 20:00 66 03/05/17 20:00 97.9 71 20 159/89 97 Room Air 03/05/17 18:07 76 18 154/94 97 Room Air 03/05/17 17:16 161/84 03/05/17 16:00 70 03/05/17 15:41 96.3 77 18 160/90 95 Room Air Intake and Output 03/05/17 03/06/17 19:00 07:00 Intake Total 240 ml Output Total 3247 ml Balance -3007 ml Intake Oral 240 ml Output Stool Total 2 ml Hemodialysis UF 3245 ml # Voids 1 # Bowel Movements 1 General Appearance: WD/WN HEENT: normocephalic, atraumatic Respiratory/Chest: chest wall non-tender, lungs clear Cardiovascular: normal peripheral pulses, normal rate Abdomen: normal bowel sounds, soft, non tender Genitourinary: normal external genitalia Extremities: no cyanosis Skin: no rash 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 Lymphatic: no neck adenopathy Microbiology Date/Time Source Procedure Growth Status 03/05/17 20:00 Stool Clostridium difficile Toxin Assay - Final Complete Laboratory Tests 03/05/17 16:00: Troponin I < 0.30, HIV (1&2) Antibody Rapid Negative 03/05/17 19:30: Troponin I < 0.30 03/05/17 23:40: Troponin I < 0.30 Current Medications Medications (Trade) Dose Ordered Sig/Kj Route PRN Reason Start Time Stop Time Status Last Admin Dose Admin Acetaminophen (Tylenol) 650 mg Q4H PRN ORAL fever 03/03/17 19:00 04/02/17 18:59 03/06/17 14:54 Albuterol/ Ipratropium (DuoNeb 0.5-3(2.5)mg/3ml) 3 ml Q6HRT PRN HHN dyspnea 03/03/17 19:00 03/08/17 18:59 Aspirin (ASA) 81 mg DAILY ORAL 03/05/17 11:00 04/04/17 10:59 03/06/17 09:39 Clonidine HCl (Catapres) 0.1 mg Q4H PRN ORAL SBP > 160 03/03/17 19:00 04/02/17 18:59 03/05/17 17:16 Clopidogrel Bisulfate (Plavix) 75 mg DAILY ORAL 03/05/17 11:00 04/04/17 10:59 03/06/17 09:41 Dextrose (Dextrose 50%) STAT PRN IV Hypoglycemia 03/03/17 19:00 04/02/17 18:59 Diltiazem HCl (Cardizem CD) 360 mg DAILY ORAL 03/04/17 09:00 04/03/17 08:59 03/06/17 09:40 Heparin Sodium (Porcine) (Heparin 5000 units/ml) 5,000 units EVERY 12 HOURS SUBQ 03/03/17 21:00 04/02/17 20:59 03/05/17 22:30 Insulin Aspart (NovoLOG) BEFORE MEALS AND HS SUBQ 03/03/17 21:00 04/02/17 20:59 03/06/17 11:43 Losartan Potassium (Cozaar) 100 mg DAILY ORAL 03/04/17 09:00 04/03/17 08:59 03/06/17 09:41 Metoclopramide HCl (Reglan) 10 mg QHS ORAL 03/04/17 21:00 04/03/17 20:59 03/05/17 22:29 Morphine Sulfate (Morphine Sulfate) 1 mg Q4H PRN IVP PAIN 4-10 03/03/17 19:00 03/10/17 18:59 Ondansetron HCl (Zofran) 4 mg Q6H PRN IVP Nausea & Vomiting 03/03/17 19:00 04/02/17 18:59 Polyethylene Glycol (Miralax) 17 gm HSPRN PRN ORAL Constipation 03/03/17 19:00 04/02/17 18:59 Sevelamer Carbonate (Renvela) 1,600 mg THREE TIMES A DAY ORAL 03/04/17 13:00 04/03/17 12:59 03/06/17 12:25 Zolpidem Tartrate (Ambien) 5 mg HSPRN PRN ORAL Insomnia 03/03/17 19:00 04/02/17 18:59 LEVAR HOWARD Mar 06, 2017 15:41
--- NOTE | 2017-03-06 18:51 | Cardiology Progress Note ---
Assessment/Plan Assessment/Plan 1. Atypical chest pain with prolonged, trop peak 3.59 thsi am suggestive of NSTEMI 2. Coronary artery disease with questionable recent percutaneous coronary intervention. 3. Diabetes mellitus. 4. Hypertension. 5. Hyperlipidemia. 6. End-stage renal disease, on hemodialysis. echo to be reviewed norml wall motion rn called me trop no 2 increased to 3.59 so stres test cancelled pt to be transferred to cath facility 3rd trop now completely normal as well as 4th that would be very unusual for trop to go form 3.59 to less than 0.3 in that short time ? error asa and plavix statin bp is still sig elevated will dc cozaar and start on either stronger arbs (not available here) or acei lisinopril already on max dose of dilt d/w acceptin gphysica at [facility] about the pt as well as the labs for /? cath Subjective Cardiovascular: Denies: chest pain - min todya , palpitations Respiratory: Denies: shortness of breath Gastrointestinal/Abdominal: Denies: abdominal pain Genitourinary: Denies: no symptoms Objective Last 24 Hour Vital Signs Date Time Temp Pulse Resp B/P Pulse Ox O2 Delivery O2 Flow Rate FiO2 03/06/17 15:27 97.2 53 20 138/67 96 Room Air 03/06/17 12:00 68 03/06/17 11:21 97.7 68 20 153/90 97 Room Air 03/06/17 09:41 148/87 03/06/17 09:40 66 148/87 03/06/17 08:01 96.8 66 20 148/87 97 Room Air 03/06/17 08:00 70 03/06/17 04:40 97.9 66 20 155/90 95 Room Air 03/06/17 04:00 61 03/06/17 00:08 97.9 66 20 155/90 95 Room Air 03/06/17 00:00 63 03/05/17 20:14 74 18 Room Air 21 03/05/17 20:00 66 03/05/17 20:00 97.9 71 20 159/89 97 Room Air General Appearance: alert Neck: supple Cardiovascular: normal rate, regular rhythm Respiratory/Chest: lungs clear, normal breath sounds Abdomen: normal bowel sounds, non tender, soft Extremities: no swelling Intake and Output 03/05/17 03/06/17 19:00 07:00 Intake Total 240 ml Output Total 3247 ml Balance -3007 ml Intake Oral 240 ml Output Stool Total 2 ml Hemodialysis UF 3245 ml # Voids 1 # Bowel Movements 1 Laboratory Tests Test 03/05/17 19:30 03/05/17 23:40 Troponin I < 0.30 ng/mL (<=0.30) < 0.30 ng/mL (<=0.30) Microbiology Date/Time Source Procedure Growth Status 03/05/17 20:00 Stool Clostridium difficile Toxin Assay - Final Complete JUANITA RAE Mar 06, 2017 18:51
[2017-03-06 20:00] VITALS: BP 137/80
[2017-03-07] VITALS (7 sets, daily range): BP systolic 145–177; BP diastolic 76–99
[2017-03-07] MEDS: NovoLOG Insulin Flexpen SUBQ SCH ×4 (06:08→22:14)
[2017-03-07 07:45] LABS: BASOPHILS % (AUTO) 1.9 % (0.0-2.0); EOSINOPHILS % (AUTO) 3.7 % (0.0-3.0); LYMPHOCYTES % (AUTO) 18.9 % (20.0-45.0); MEAN CORPUSCULAR HEMOGLOBIN 29.3 PG (27.0-31.0); MEAN CORPUSCULAR HGB CONC 31.1 G/DL (32.0-36.0); MEAN CORPUSCULAR VOLUME 94 FL (80-99); MEAN PLATELET VOLUME 6.6 FL (6.5-10.1); MONOCYTES % (AUTO) 6.3 % (1.0-10.0); NEUTROPHILS % (AUTO) 69.3 % (45.0-75.0); PLATELET COUNT 168 K/UL (150-450); RED BLOOD COUNT 3.69 M/UL (4.70-6.10); RED CELL DISTRIBUTION WIDTH 14.5 % (11.6-14.8); WHITE BLOOD COUNT 6.2 K/UL (4.8-10.8)
[2017-03-07 07:56] LABS: ALBUMIN/GLOBULIN RATIO 1.3 (1.0-2.7); CALCIUM 9.5 mg/dL (8.6-10.2); CREATININE 9.7 mg/dL (0.7-1.2); GLOMERULAR FILTRATION RATE 5.8 mL/min (>60); MAGNESIUM 2.6 mg/dL (1.7-2.5); PHOSPHORUS 6.2 mg/dL (2.5-4.8); TOTAL PROTEIN 8.1 g/dL (6.6-8.7)
[2017-03-07 08:20] LABS: POTASSIUM 6.5 mEQ/L (3.4-4.9)
[2017-03-07 08:23] LABS: URIC ACID 7.1 MG/DL (2.6-7.2)
[2017-03-07] MEDS: Aspirin Baby 81mg ORAL SCH (09:30)
[2017-03-07] MEDS: Losartan 50mg tab ORAL SCH (09:30)
[2017-03-07] MEDS: Heparin 5000 units/ml inj SUBQ SCH ×2 (09:30→22:13)
[2017-03-07] MEDS: Diltiazem CD 120mg cap ORAL SCH (09:30)
--- NOTE | 2017-03-07 10:57 | General Progress Note ---
Assessment/Plan Status: stable Status Narrative On HD now Assessment/Plan status; - ESRD - HTN - Anemia of CKD - DM - CVA - [place] Plan: HD in process HIV negative Subjective ROS Limited/Unobtainable: No Allergies: Coded Allergies: No Known Allergies (Unverified , 03/14/14) Objective Last 24 Hour Vital Signs Date Time Temp Pulse Resp B/P Pulse Ox O2 Delivery O2 Flow Rate FiO2 03/07/17 08:10 Room Air 03/07/17 08:00 97.0 70 20 165/92 96 Room Air 03/07/17 07:51 70 03/07/17 04:00 54 03/07/17 04:00 97.3 59 18 158/97 97 Room Air 03/07/17 00:00 97.7 55 18 145/76 98 Room Air 2.0 21 03/07/17 00:00 56 03/06/17 20:00 97.3 53 18 137/80 98 Room Air 03/06/17 20:00 52 03/06/17 19:11 62 18 Room Air 21 03/06/17 16:00 68 03/06/17 15:27 97.2 53 20 138/67 96 Room Air 03/06/17 12:00 68 03/06/17 11:21 97.7 68 20 153/90 97 Room Air Intake and Output 03/06/17 03/07/17 19:00 07:00 Intake Total 550 ml 120 ml Output Total 0 ml Balance 550 ml 120 ml Intake Oral 550 ml 120 ml Output Urine Total 0 ml Laboratory Tests 03/07/17 06:35: White Blood Count 6.2, Red Blood Count 3.69L, Hemoglobin 10.8L, Hematocrit 34.7L , Mean Corpuscular Volume 94, Mean Corpuscular Hemoglobin 29.3, Mean Corpuscular Hemoglobin Concent 31.1L, Red Cell Distribution Width 14.5, Platelet Count 168, Mean Platelet Volume 6.6, Neutrophils (%) (Auto) 69.3, Lymphocytes (%) (Auto) 18.9L, Monocytes (%) (Auto) 6.3, Eosinophils (%) (Auto) 3.7H, Basophils (%) (Auto) 1.9, Sodium Level 139, Potassium Level 6.5*H, Chloride Level 92L, Carbon Dioxide Level 24, Anion Gap 23H, Blood Urea Nitrogen 66H, Creatinine 9.7H, Estimat Glomerular Filtration Rate 5.8, Glucose Level 108H , Uric Acid 7.1, Calcium Level 9.5, Phosphorus Level 6.2H, Magnesium Level 2.6H , Total Bilirubin 0.6, Aspartate Amino Transf (AST/SGOT) 18, Alanine Aminotransferase (ALT/SGPT) 12, Alkaline Phosphatase 104, Pro-B-Type Natriuretic Peptide 88509V, Total Protein 8.1, Albumin 4.7, Globulin 3.4, Albumin/Globulin Ratio 1.3 Height (Feet): 5 Height (Inches): 7.00 Weight (Pounds): 171 General Appearance: no apparent distress Objective no change in PE GERA NICOLE Mar 07, 2017 10:57
[2017-03-07] MEDS ORDERED: Tubing IV Secondary IV ONE (14:46)
[2017-03-07] MEDS ORDERED: NS 275ml ONE (14:46)
--- NOTE | 2017-03-07 14:50 | Pulmonology Progress Note ---
Assessment/Plan Assessment/Plan ASSESSMENT chest pain possible NSTEMI CAD DM HTN HLD ESRD, on HD anemia of chronic renal disease hyperkalemia PLAN OF CARE tele last 3 troponin negative cardio follows per cardio; prolonged, troponin peak possibly indicated NSTEMI awaiting for transfer to [facility] for cardiac cath on ASA, Plavix, statin lipid panel stable ECHO with EF 60-65% and RVSP of 27 BS management with SS of insulin HD as per nephro, monitor renal parameters, lytes DVT prophylaxis monitor HH, at baseline K-6.5 today, had HD today, K free bath, check BMP in am awaiting for transfer for cardiac cath case discussed and evaluated by supervising physician Subjective Allergies: Coded Allergies: No Known Allergies (Unverified , 03/14/14) Subjective currently denies chest pain, SOB, one troponin positive, 3 prior and 3 subsequent all negative K-6.5 today Objective Last 24 Hour Vital Signs Date Time Temp Pulse Resp B/P Pulse Ox O2 Delivery O2 Flow Rate FiO2 03/07/17 12:00 97.5 83 20 154/76 95 Room Air 03/07/17 11:45 Room Air 03/07/17 08:10 Room Air 03/07/17 08:00 97.0 70 20 165/92 96 Room Air 03/07/17 07:51 70 03/07/17 04:00 54 03/07/17 04:00 97.3 59 18 158/97 97 Room Air 03/07/17 00:00 97.7 55 18 145/76 98 Room Air 2.0 21 03/07/17 00:00 56 03/06/17 20:00 97.3 53 18 137/80 98 Room Air 03/06/17 20:00 52 03/06/17 19:11 62 18 Room Air 21 03/06/17 16:00 68 03/06/17 15:27 97.2 53 20 138/67 96 Room Air Intake and Output 03/06/17 03/07/17 19:00 07:00 Intake Total 550 ml 120 ml Output Total 0 ml Balance 550 ml 120 ml Intake Oral 550 ml 120 ml Output Urine Total 0 ml General Appearance: WD/WN, no acute distress HEENT: normocephalic, atraumatic, anicteric, mucous membranes moist Respiratory/Chest: normal breath sounds, no respiratory distress, no accessory muscle use Cardiovascular: normal peripheral pulses, normal rate, regular rhythm - SR on tele with ST depression Abdomen: normal bowel sounds, no organomegaly, non distended Genitourinary: normal external genitalia Extremities: no edema, pedal pulses normal Neurologic/Psychiatric: alert, oriented x 3, responsive Musculoskeletal: normal muscle bulk Microbiology Date/Time Source Procedure Growth Status 03/05/17 20:00 Stool Clostridium difficile Toxin Assay - Final Complete Laboratory Tests 03/07/17 06:35: White Blood Count 6.2, Red Blood Count 3.69L, Hemoglobin 10.8L, Hematocrit 34.7L , Mean Corpuscular Volume 94, Mean Corpuscular Hemoglobin 29.3, Mean Corpuscular Hemoglobin Concent 31.1L, Red Cell Distribution Width 14.5, Platelet Count 168, Mean Platelet Volume 6.6, Neutrophils (%) (Auto) 69.3, Lymphocytes (%) (Auto) 18.9L, Monocytes (%) (Auto) 6.3, Eosinophils (%) (Auto) 3.7H, Basophils (%) (Auto) 1.9, Sodium Level 139, Potassium Level 6.5*H, Chloride Level 92L, Carbon Dioxide Level 24, Anion Gap 23H, Blood Urea Nitrogen 66H, Creatinine 9.7H, Estimat Glomerular Filtration Rate 5.8, Glucose Level 108H , Uric Acid 7.1, Calcium Level 9.5, Phosphorus Level 6.2H, Magnesium Level 2.6H , Total Bilirubin 0.6, Aspartate Amino Transf (AST/SGOT) 18, Alanine Aminotransferase (ALT/SGPT) 12, Alkaline Phosphatase 104, Pro-B-Type Natriuretic Peptide 45166Y, Total Protein 8.1, Albumin 4.7, Globulin 3.4, Albumin/Globulin Ratio 1.3 Current Medications Medications (Trade) Dose Ordered Sig/Kj Route PRN Reason Start Time Stop Time Status Last Admin Dose Admin Acetaminophen (Tylenol) 650 mg Q4H PRN ORAL fever 03/03/17 19:00 04/02/17 18:59 03/06/17 14:54 Albuterol/ Ipratropium (DuoNeb 0.5-3(2.5)mg/3ml) 3 ml Q6HRT PRN HHN dyspnea 03/03/17 19:00 03/08/17 18:59 Aspirin (ASA) 81 mg DAILY ORAL 03/05/17 11:00 04/04/17 10:59 03/06/17 09:39 Clonidine HCl (Catapres) 0.1 mg Q4H PRN ORAL SBP > 160 03/03/17 19:00 04/02/17 18:59 03/05/17 17:16 Clopidogrel Bisulfate (Plavix) 75 mg DAILY ORAL 03/05/17 11:00 04/04/17 10:59 03/06/17 09:41 Dextrose (Dextrose 50%) STAT PRN IV Hypoglycemia 03/03/17 19:00 04/02/17 18:59 Diltiazem HCl (Cardizem CD) 360 mg DAILY ORAL 03/04/17 09:00 04/03/17 08:59 03/06/17 09:40 Heparin Sodium (Porcine) (Heparin 5000 units/ml) 5,000 units EVERY 12 HOURS SUBQ 03/03/17 21:00 04/02/17 20:59 03/06/17 21:12 Insulin Aspart (NovoLOG) BEFORE MEALS AND HS SUBQ 03/03/17 21:00 04/02/17 20:59 03/07/17 12:51 Losartan Potassium (Cozaar) 100 mg DAILY ORAL 03/04/17 09:00 04/03/17 08:59 03/06/17 09:41 Metoclopramide HCl (Reglan) 10 mg QHS ORAL 03/04/17 21:00 04/03/17 20:59 03/06/17 21:09 Morphine Sulfate (Morphine Sulfate) 1 mg Q4H PRN IVP PAIN 4-10 03/03/17 19:00 03/10/17 18:59 Ondansetron HCl (Zofran) 4 mg Q6H PRN IVP Nausea & Vomiting 03/03/17 19:00 04/02/17 18:59 Polyethylene Glycol (Miralax) 17 gm HSPRN PRN ORAL Constipation 03/03/17 19:00 04/02/17 18:59 Sevelamer Carbonate (Renvela) 1,600 mg THREE TIMES A DAY ORAL 03/04/17 13:00 04/03/17 12:59 03/07/17 12:49 Zolpidem Tartrate (Ambien) 5 mg HSPRN PRN ORAL Insomnia 03/03/17 19:00 04/02/17 18:59 Plata (Vanchtein),Irena ARELLANO Mar 07, 2017 14:50
--- NOTE | 2017-03-07 15:02 | Cardiology Progress Note ---
Assessment/Plan Assessment/Plan chest pain, hgih risk patient, but free of chest pain at this moment hyperlaemia, patient is on HD, nephrology is aware discussed with nurse Subjective Subjective the patient had mild discomfort on the left side this morning but now he denies any chest pain has dyspnea when laying down Objective Last 24 Hour Vital Signs Date Time Temp Pulse Resp B/P Pulse Ox O2 Delivery O2 Flow Rate FiO2 03/07/17 12:00 97.5 83 20 154/76 95 Room Air 03/07/17 11:45 Room Air 03/07/17 08:10 Room Air 03/07/17 08:00 97.0 70 20 165/92 96 Room Air 03/07/17 07:51 70 03/07/17 04:00 54 03/07/17 04:00 97.3 59 18 158/97 97 Room Air 03/07/17 00:00 97.7 55 18 145/76 98 Room Air 2.0 21 03/07/17 00:00 56 03/06/17 20:00 97.3 53 18 137/80 98 Room Air 03/06/17 20:00 52 03/06/17 19:11 62 18 Room Air 21 03/06/17 16:00 68 03/06/17 15:27 97.2 53 20 138/67 96 Room Air General Appearance: no apparent distress, other EENT: other - left eye is blind Neck: no JVD Rhythm: NSR Cardiovascular: regular rhythm Respiratory/Chest: normal breath sounds Abdomen: non tender, distended Extremities: non-tender, other - left aqrm dialysis fistula Intake and Output 03/06/17 03/07/17 19:00 07:00 Intake Total 550 ml 120 ml Output Total 0 ml Balance 550 ml 120 ml Intake Oral 550 ml 120 ml Output Urine Total 0 ml Laboratory Tests Test 03/07/17 06:35 White Blood Count 6.2 K/UL (4.8-10.8) Red Blood Count 3.69 M/UL (4.70-6.10) L Hemoglobin 10.8 G/DL (14.2-18.0) L Hematocrit 34.7 % (42.0-52.0) L Mean Corpuscular Volume 94 FL (80-99) Mean Corpuscular Hemoglobin 29.3 PG (27.0-31.0) Mean Corpuscular Hemoglobin Concent 31.1 G/DL (32.0-36.0) L Red Cell Distribution Width 14.5 % (11.6-14.8) Platelet Count 168 K/UL (150-450) Mean Platelet Volume 6.6 FL (6.5-10.1) Neutrophils (%) (Auto) 69.3 % (45.0-75.0) Lymphocytes (%) (Auto) 18.9 % (20.0-45.0) L Monocytes (%) (Auto) 6.3 % (1.0-10.0) Eosinophils (%) (Auto) 3.7 % (0.0-3.0) H Basophils (%) (Auto) 1.9 % (0.0-2.0) Sodium Level 139 mEQ/L (135-145) Potassium Level 6.5 mEQ/L (3.4-4.9) *H Chloride Level 92 mEQ/L (98-107) L Carbon Dioxide Level 24 mEQ/L (20-30) Anion Gap 23 (5-15) H Blood Urea Nitrogen 66 mg/dL (7-23) H Creatinine 9.7 mg/dL (0.7-1.2) H Estimat Glomerular Filtration Rate 5.8 mL/min (>60) Glucose Level 108 mg/dL (74-106) H Uric Acid 7.1 MG/DL (2.6-7.2) Calcium Level 9.5 mg/dL (8.6-10.2) Phosphorus Level 6.2 mg/dL (2.5-4.8) H Magnesium Level 2.6 mg/dL (1.7-2.5) H Total Bilirubin 0.6 mg/dL (0.0-1.2) Aspartate Amino Transf (AST/SGOT) 18 U/L (5-40) Alanine Aminotransferase (ALT/SGPT) 12 U/L (3-41) Alkaline Phosphatase 104 U/L (40-129) Pro-B-Type Natriuretic Peptide 37287 pg/mL (0-125) H Total Protein 8.1 g/dL (6.6-8.7) Albumin 4.7 g/dL (3.5-5.2) Globulin 3.4 g/dL Albumin/Globulin Ratio 1.3 (1.0-2.7) Microbiology Date/Time Source Procedure Growth Status 03/05/17 20:00 Stool Clostridium difficile Toxin Assay - Final Complete JOSERAVI Mar 07, 2017 15:02
[2017-03-08] VITALS (7 sets, daily range): BP systolic 114–167; BP diastolic 64–90
[2017-03-08] MEDS: NovoLOG Insulin Flexpen SUBQ SCH ×4 (06:32→20:54)
[2017-03-08 09:06] LABS: CALCIUM 9.2 mg/dL (8.6-10.2); CREATININE 7.7 mg/dL (0.7-1.2); GLOMERULAR FILTRATION RATE 7.6 mL/min (>60); POTASSIUM 5.7 mEQ/L (3.4-4.9)
[2017-03-08] MEDS: Losartan 50mg tab ORAL SCH (09:35)
[2017-03-08] MEDS: Aspirin Baby 81mg ORAL SCH (09:35)
[2017-03-08] MEDS: Diltiazem CD 120mg cap ORAL SCH (09:35)
[2017-03-08] MEDS: Heparin 5000 units/ml inj SUBQ SCH ×2 (09:36→20:55)
[2017-03-08] MEDS ORDERED: Sodium Polystyrene Sulfonate 15gm Powder ORAL ONE (11:15)
--- NOTE | 2017-03-08 12:39 | General Progress Note ---
Assessment/Plan Status: stable Status Narrative K elevated Assessment/Plan status; - ESRD - HTN - Anemia of CKD - DM - CVA - [place] Plan: HD in [facility] now Per consultants- DC planning?? Subjective ROS Limited/Unobtainable: No Constitutional: Reports: malaise Allergies: Coded Allergies: No Known Allergies (Unverified , 03/14/14) Objective Last 24 Hour Vital Signs Date Time Temp Pulse Resp B/P Pulse Ox O2 Delivery O2 Flow Rate FiO2 03/08/17 09:35 144/78 03/08/17 09:35 63 144/78 03/08/17 08:20 71 03/08/17 08:00 97.0 63 18 144/78 99 Room Air 03/08/17 04:09 97.3 67 20 141/82 98 Room Air 03/08/17 04:00 67 03/08/17 03:41 155/72 03/08/17 01:45 167/90 03/08/17 00:00 97.5 79 20 167/90 98 Room Air 03/07/17 20:00 98.0 80 20 160/88 98 Room Air 03/07/17 19:07 72 20 Room Air 21 03/07/17 19:07 98.1 03/07/17 17:53 166/96 03/07/17 17:45 95 166/96 03/07/17 16:00 98.1 85 20 158/99 98 Room Air Intake and Output 03/07/17 03/08/17 19:00 07:00 Intake Total 720 ml 120 ml Output Total 2500 ml Balance -1780 ml 120 ml Intake Oral 720 ml 120 ml Hemodialysis UF 2500 ml # Bowel Movements 3 Laboratory Tests 03/08/17 07:40: Sodium Level 142, Potassium Level 5.7H, Chloride Level 98, Carbon Dioxide Level 24, Anion Gap 20H, Blood Urea Nitrogen 56H, Creatinine 7.7H, Estimat Glomerular Filtration Rate 7.6, Glucose Level 102, Calcium Level 9.2 Height (Feet): 5 Height (Inches): 7.00 Weight (Pounds): 171 General Appearance: no apparent distress Objective no change in PE GERA NICOLE Mar 08, 2017 12:39
--- NOTE | 2017-03-08 15:49 | Pulmonology Progress Note ---
Assessment/Plan Assessment/Plan ASSESSMENT chest pain possible NSTEMI CAD DM HTN HLD ESRD, on HD anemia of chronic renal disease hyperkalemia PLAN OF CARE tele last 3 troponin negative cardio follows per cardio; prolonged, troponin peak possibly indicated NSTEMI awaiting for transfer to [facility] for cardiac cath on ASA, Plavix, statin lipid panel stable ECHO with EF 60-65% and RVSP of 27 BS management with SS of insulin HD as per nephro, monitor renal parameters, lytes DVT prophylaxis monitor HH, at baseline K-5.7 today, per nephro management awaiting for transfer for cardiac cath case discussed and evaluated by supervising physician Subjective Allergies: Coded Allergies: No Known Allergies (Unverified , 03/14/14) Subjective currently denies chest pain, SOB, chest pain last night one troponin positive, 3 prior and 3 subsequent all negative K-5.7 today Objective Last 24 Hour Vital Signs Date Time Temp Pulse Resp B/P Pulse Ox O2 Delivery O2 Flow Rate FiO2 03/08/17 12:00 96.4 78 19 136/74 Nasal Cannula 03/08/17 11:44 68 03/08/17 09:35 144/78 03/08/17 09:35 63 144/78 03/08/17 08:20 71 03/08/17 08:00 97.0 63 18 144/78 99 Room Air 03/08/17 04:09 97.3 67 20 141/82 98 Room Air 03/08/17 04:00 67 03/08/17 03:41 155/72 03/08/17 01:45 167/90 03/08/17 00:00 97.5 79 20 167/90 98 Room Air 03/07/17 20:00 98.0 80 20 160/88 98 Room Air 03/07/17 19:07 72 20 Room Air 21 03/07/17 19:07 98.1 03/07/17 17:53 166/96 03/07/17 17:45 95 166/96 03/07/17 16:00 98.1 85 20 158/99 98 Room Air Intake and Output 03/07/17 03/08/17 19:00 07:00 Intake Total 720 ml 120 ml Output Total 2500 ml Balance -1780 ml 120 ml Intake Oral 720 ml 120 ml Hemodialysis UF 2500 ml # Bowel Movements 3 Objective General Appearance: WD/WN, no acute distress HEENT: normocephalic, atraumatic, anicteric, mucous membranes moist Respiratory/Chest: normal breath sounds, no respiratory distress, no accessory muscle use Cardiovascular: normal peripheral pulses, normal rate, regular rhythm - SR on tele with ST depression Abdomen: normal bowel sounds, no organomegaly, non distended Genitourinary: normal external genitalia Extremities: no edema, pedal pulses normal Neurologic/Psychiatric: alert, oriented x 3, responsive Musculoskeletal: normal muscle bulk Microbiology Date/Time Source Procedure Growth Status 03/05/17 20:00 Stool Clostridium difficile Toxin Assay - Final Complete Laboratory Tests 03/08/17 07:40: Sodium Level 142, Potassium Level 5.7H, Chloride Level 98, Carbon Dioxide Level 24, Anion Gap 20H, Blood Urea Nitrogen 56H, Creatinine 7.7H, Estimat Glomerular Filtration Rate 7.6, Glucose Level 102, Calcium Level 9.2 Current Medications Medications (Trade) Dose Ordered Sig/Kj Route PRN Reason Start Time Stop Time Status Last Admin Dose Admin Acetaminophen (Tylenol) 650 mg Q4H PRN ORAL Mild Pain/Temp > 100.5 03/07/17 19:00 04/06/17 18:59 03/07/17 18:08 Albuterol/ Ipratropium (DuoNeb 0.5-3(2.5)mg/3ml) 3 ml Q6HRT PRN HHN dyspnea 03/03/17 19:00 03/08/17 18:59 Aspirin (ASA) 81 mg DAILY ORAL 03/05/17 11:00 04/04/17 10:59 03/08/17 09:35 Clonidine HCl (Catapres) 0.1 mg Q4H PRN ORAL SBP > 160 03/03/17 19:00 04/02/17 18:59 03/08/17 01:45 Clopidogrel Bisulfate (Plavix) 75 mg DAILY ORAL 03/05/17 11:00 04/04/17 10:59 03/08/17 09:35 Dextrose (Dextrose 50%) STAT PRN IV Hypoglycemia 03/03/17 19:00 04/02/17 18:59 Diltiazem HCl (Cardizem CD) 360 mg DAILY ORAL 03/04/17 09:00 04/03/17 08:59 03/08/17 09:35 Heparin Sodium (Porcine) (Heparin 5000 units/ml) 5,000 units EVERY 12 HOURS SUBQ 03/03/17 21:00 04/02/17 20:59 03/08/17 09:36 Insulin Aspart (NovoLOG) BEFORE MEALS AND HS SUBQ 03/03/17 21:00 04/02/17 20:59 03/08/17 11:45 Losartan Potassium (Cozaar) 100 mg DAILY ORAL 03/04/17 09:00 04/03/17 08:59 03/08/17 09:35 Metoclopramide HCl (Reglan) 10 mg QHS ORAL 03/04/17 21:00 04/03/17 20:59 03/07/17 22:12 Morphine Sulfate (Morphine Sulfate) 1 mg Q4H PRN IVP PAIN 4-10 03/03/17 19:00 03/10/17 18:59 Ondansetron HCl (Zofran) 4 mg Q6H PRN IVP Nausea & Vomiting 03/03/17 19:00 04/02/17 18:59 Polyethylene Glycol (Miralax) 17 gm HSPRN PRN ORAL Constipation 03/03/17 19:00 04/02/17 18:59 Sevelamer Carbonate (Renvela) 1,600 mg THREE TIMES A DAY ORAL 03/04/17 13:00 04/03/17 12:59 03/08/17 13:34 Zolpidem Tartrate (Ambien) 5 mg HSPRN PRN ORAL Insomnia 03/03/17 19:00 04/02/17 18:59 Irena Plata NP (Vanchtein) Mar 08, 2017 15:49
[2017-03-08] MEDS ORDERED: DuoNeb 0.5-3(2.5)mg/3ml neb HHN PRN (16:00)
[2017-03-08] MEDS ORDERED: Morphine Sulfate 2mg/ml Inj IVP PRN (16:00)
--- NOTE | 2017-03-08 17:03 | Cardiology Progress Note ---
Assessment/Plan Assessment/Plan the patient has indications for cardiac cath, high risk and ongoing chest pain, he is being transferred to another hospital. At present is stable without chest pain Subjective Subjective the patient denies any chest pain, he is asking if he will be transferred to another hospital. No dyspnea Objective Last 24 Hour Vital Signs Date Time Temp Pulse Resp B/P Pulse Ox O2 Delivery O2 Flow Rate FiO2 03/08/17 16:00 97.2 113 18 114/64 98 Room Air 03/08/17 12:00 96.4 78 19 136/74 Nasal Cannula 03/08/17 11:44 68 03/08/17 09:35 144/78 03/08/17 09:35 63 144/78 03/08/17 08:20 71 03/08/17 08:00 97.0 63 18 144/78 99 Room Air 03/08/17 04:09 97.3 67 20 141/82 98 Room Air 03/08/17 04:00 67 03/08/17 03:41 155/72 03/08/17 01:45 167/90 03/08/17 00:00 97.5 79 20 167/90 98 Room Air 03/07/17 20:00 98.0 80 20 160/88 98 Room Air 03/07/17 19:07 72 20 Room Air 21 03/07/17 19:07 98.1 03/07/17 17:53 166/96 03/07/17 17:45 95 166/96 General Appearance: no apparent distress, alert, other EENT: other - left eye blind Neck: JVD Rhythm: NSR Cardiovascular: systolic murmur Respiratory/Chest: crackles/rales Abdomen: soft Extremities: other - left wrist fistula Intake and Output 03/07/17 03/08/17 19:00 07:00 Intake Total 720 ml 120 ml Output Total 2500 ml Balance -1780 ml 120 ml Intake Oral 720 ml 120 ml Hemodialysis UF 2500 ml # Bowel Movements 3 Laboratory Tests Test 03/08/17 07:40 Sodium Level 142 mEQ/L (135-145) Potassium Level 5.7 mEQ/L (3.4-4.9) H Chloride Level 98 mEQ/L (98-107) Carbon Dioxide Level 24 mEQ/L (20-30) Anion Gap 20 (5-15) H Blood Urea Nitrogen 56 mg/dL (7-23) H Creatinine 7.7 mg/dL (0.7-1.2) H Estimat Glomerular Filtration Rate 7.6 mL/min (>60) Glucose Level 102 mg/dL (74-106) Calcium Level 9.2 mg/dL (8.6-10.2) Microbiology Date/Time Source Procedure Growth Status 03/05/17 20:00 Stool Clostridium difficile Toxin Assay - Final Complete JOSESANDYE Mar 08, 2017 17:03
[2017-03-09] VITALS: BP 152/97
[2017-03-09 04:00] VITALS: BP 174/99
[2017-03-09] MEDS: NovoLOG Insulin Flexpen SUBQ SCH ×4 (06:00→21:07)
[2017-03-09 08:20] VITALS: BP 168/91
[2017-03-09] MEDS: Aspirin Baby 81mg ORAL SCH (08:36)
[2017-03-09] MEDS: Losartan 50mg tab ORAL SCH (08:37)
[2017-03-09] MEDS: Diltiazem CD 120mg cap ORAL SCH (08:37)
[2017-03-09] MEDS: Heparin 5000 units/ml inj SUBQ SCH ×2 (08:40→21:08)
[2017-03-09 10:46] LABS: BASOPHILS % (AUTO) 1.1 % (0.0-2.0); EOSINOPHILS % (AUTO) 4.3 % (0.0-3.0); LYMPHOCYTES % (AUTO) 19.7 % (20.0-45.0); MEAN CORPUSCULAR HEMOGLOBIN 30.6 PG (27.0-31.0); MEAN CORPUSCULAR HGB CONC 33.4 G/DL (32.0-36.0); MEAN CORPUSCULAR VOLUME 92 FL (80-99); MEAN PLATELET VOLUME 6.2 FL (6.5-10.1); MONOCYTES % (AUTO) 6.1 % (1.0-10.0); NEUTROPHILS % (AUTO) 68.8 % (45.0-75.0); PLATELET COUNT 166 K/UL (150-450); RED BLOOD COUNT 3.22 M/UL (4.70-6.10); RED CELL DISTRIBUTION WIDTH 14.5 % (11.6-14.8); WHITE BLOOD COUNT 4.8 K/UL (4.8-10.8)
[2017-03-09 10:57] LABS: CREATININE 6.1 mg/dL (0.7-1.2); GLOMERULAR FILTRATION RATE 9.9 mL/min (>60); POTASSIUM 3.6 mEQ/L (3.4-4.9)
[2017-03-09 11:38] VITALS: BP 142/79
--- NOTE | 2017-03-09 13:49 | General Progress Note ---
Assessment/Plan Status: stable Assessment/Plan status; - ESRD - HTN - Anemia of CKD - DM - CVA - [place] Plan: HD today done- next 03/11 Per consultants- DC planning?? vs awaiting for transfer to [facility] for cardiac cath Subjective ROS Limited/Unobtainable: No Allergies: Coded Allergies: No Known Allergies (Unverified , 03/14/14) Objective Last 24 Hour Vital Signs Date Time Temp Pulse Resp B/P Pulse Ox O2 Delivery O2 Flow Rate FiO2 03/09/17 11:38 97.5 75 18 142/79 97 Room Air 03/09/17 09:20 Room Air 2.0 21 03/09/17 08:37 168/91 03/09/17 08:37 75 168/91 03/09/17 08:20 97.0 75 18 168/91 95 Room Air 03/09/17 08:00 77 03/09/17 07:50 79 20 Room Air 21 03/09/17 07:11 176/90 03/09/17 06:31 Room Air 2.0 21 03/09/17 04:40 Room Air 2.0 21 03/09/17 04:00 97.7 67 20 174/99 95 Room Air 03/09/17 04:00 70 03/09/17 00:00 97.7 67 20 152/97 98 Room Air 03/09/17 00:00 64 03/08/17 20:00 66 03/08/17 20:00 97.5 63 20 150/89 98 Room Air 03/08/17 18:42 68 20 Room Air 21 03/08/17 16:10 63 03/08/17 16:00 97.2 113 18 114/64 98 Room Air Intake and Output 03/08/17 03/09/17 19:00 07:00 Intake Total 240 ml Balance 240 ml Intake Oral 240 ml # Voids 2 # Bowel Movements 4 Laboratory Tests 03/09/17 09:40: White Blood Count 4.8, Red Blood Count 3.22L, Hemoglobin 9.9L, Hematocrit 29.5L , Mean Corpuscular Volume 92, Mean Corpuscular Hemoglobin 30.6, Mean Corpuscular Hemoglobin Concent 33.4, Red Cell Distribution Width 14.5, Platelet Count 166, Mean Platelet Volume 6.2L, Neutrophils (%) (Auto) 68.8, Lymphocytes ( %) (Auto) 19.7L, Monocytes (%) (Auto) 6.1, Eosinophils (%) (Auto) 4.3H, Basophils (%) (Auto) 1.1, Sodium Level 141, Potassium Level 3.6, Chloride Level 91L, Carbon Dioxide Level 28, Anion Gap 22H, Blood Urea Nitrogen 42H, Creatinine 6.1H, Estimat Glomerular Filtration Rate 9.9, Glucose Level 122H, Calcium Level 9.0 Height (Feet): 5 Height (Inches): 7.00 Weight (Pounds): 171 General Appearance: no apparent distress Objective no change in PE GERA NICOLE March 09, 2017 13:49
[2017-03-09 15:35] VITALS: BP 106/61
--- NOTE | 2017-03-09 18:07 | Cardiology Progress Note ---
Assessment/Plan Assessment/Plan 1. Atypical chest pain with prolonged, trop peak 3.59 thsi am suggestive of NSTEMI 2. Coronary artery disease with questionable recent percutaneous coronary intervention. 3. Diabetes mellitus. 4. Hypertension. 5. Hyperlipidemia. 6. End-stage renal disease, on hemodialysis. echo to be reviewed norml wall motion rn called me trop no 2 increased to 3.59 so stres test cancelled pt to be transferred to cath facility 3rd trop now completely normal as well as 4th that would be very unusual for trop to go form 3.59 to less than 0.3 in that short time ? error asa and plavix statin had some nehal will decrease dilt and d/w accepting physician at [facility] about the pt as well as the labs for /? cath no bed available still mutlipe attempt at [facility] to the accpeting facility hav failed d/w rn d/w niece Subjective Cardiovascular: Reports: chest pain - littel Respiratory: Denies: shortness of breath Gastrointestinal/Abdominal: Denies: abdominal pain Genitourinary: Denies: burning Objective Last 24 Hour Vital Signs Date Time Temp Pulse Resp B/P Pulse Ox O2 Delivery O2 Flow Rate FiO2 03/09/17 15:35 97.0 54 18 106/61 96 Room Air 03/09/17 12:00 74 03/09/17 11:38 97.5 75 18 142/79 97 Room Air 03/09/17 09:20 Room Air 2.0 21 03/09/17 08:37 168/91 03/09/17 08:37 75 168/91 03/09/17 08:20 97.0 75 18 168/91 95 Room Air 03/09/17 08:00 77 03/09/17 07:50 79 20 Room Air 21 03/09/17 07:11 176/90 03/09/17 06:31 Room Air 2.0 21 03/09/17 04:40 Room Air 2.0 21 03/09/17 04:00 97.7 67 20 174/99 95 Room Air 03/09/17 04:00 70 03/09/17 00:00 97.7 67 20 152/97 98 Room Air 03/09/17 00:00 64 03/08/17 20:00 66 03/08/17 20:00 97.5 63 20 150/89 98 Room Air 03/08/17 18:42 68 20 Room Air 21 General Appearance: alert Neck: supple Cardiovascular: normal rate, regular rhythm Respiratory/Chest: lungs clear, normal breath sounds Abdomen: normal bowel sounds, non tender, soft Extremities: no swelling Intake and Output 03/08/17 03/09/17 19:00 07:00 Intake Total 240 ml Balance 240 ml Intake Oral 240 ml # Voids 2 # Bowel Movements 4 Laboratory Tests Test 03/09/17 09:40 White Blood Count 4.8 K/UL (4.8-10.8) Red Blood Count 3.22 M/UL (4.70-6.10) L Hemoglobin 9.9 G/DL (14.2-18.0) L Hematocrit 29.5 % (42.0-52.0) L Mean Corpuscular Volume 92 FL (80-99) Mean Corpuscular Hemoglobin 30.6 PG (27.0-31.0) Mean Corpuscular Hemoglobin Concent 33.4 G/DL (32.0-36.0) Red Cell Distribution Width 14.5 % (11.6-14.8) Platelet Count 166 K/UL (150-450) Mean Platelet Volume 6.2 FL (6.5-10.1) L Neutrophils (%) (Auto) 68.8 % (45.0-75.0) Lymphocytes (%) (Auto) 19.7 % (20.0-45.0) L Monocytes (%) (Auto) 6.1 % (1.0-10.0) Eosinophils (%) (Auto) 4.3 % (0.0-3.0) H Basophils (%) (Auto) 1.1 % (0.0-2.0) Sodium Level 141 mEQ/L (135-145) Potassium Level 3.6 mEQ/L (3.4-4.9) Chloride Level 91 mEQ/L (98-107) L Carbon Dioxide Level 28 mEQ/L (20-30) Anion Gap 22 (5-15) H Blood Urea Nitrogen 42 mg/dL (7-23) H Creatinine 6.1 mg/dL (0.7-1.2) H Estimat Glomerular Filtration Rate 9.9 mL/min (>60) Glucose Level 122 mg/dL (74-106) H Calcium Level 9.0 mg/dL (8.6-10.2) JUANITA RAE March 09, 2017 18:07
[2017-03-09 20:00] VITALS: BP 123/70
[2017-03-10] VITALS: BP 133/70
[2017-03-10 04:00] VITALS: BP 145/85
[2017-03-10] MEDS: NovoLOG Insulin Flexpen SUBQ SCH (05:54)
[2017-03-10 07:55] VITALS: BP 167/90
[2017-03-10 08:43] VITALS: BP 167/90
[2017-03-10] MEDS: Aspirin Baby 81mg ORAL SCH (08:43)
[2017-03-10] MEDS: Diltiazem CD 120mg cap ORAL SCH (08:43)
[2017-03-10] MEDS: Losartan 50mg tab ORAL SCH (08:43)
[2017-03-10] MEDS: Heparin 5000 units/ml inj SUBQ SCH (08:44)
--- NOTE | 2017-03-10 09:56 | Cardiology Progress Note ---
Assessment/Plan Assessment/Plan 1. Atypical chest pain with prolonged, trop peak 3.59 thsi am suggestive of NSTEMI 2. Coronary artery disease with questionable recent percutaneous coronary intervention. 3. Diabetes mellitus. 4. Hypertension. 5. Hyperlipidemia. 6. End-stage renal disease, on hemodialysis. echo to be reviewed norml wall motion rn called me trop no 2 increased to 3.59 so stres test cancelled pt to be transferred to cath facility 3rd trop and subsequent now completely normal that would be very unusual for trop to go form 3.59 to less than 0.3 in that short time ? error asa and plavix statin had some nehal will decrease dilt d/w accepting physician last week at [place] about the pt as well as the labs for /? cath finally a bed magdiel roque hopefuly he can have cath and hoeflully will be normal d/w rn d/w bilingual case manager d/w devikaece yest Subjective Cardiovascular: Reports: chest pain - lat ntie , Denies: lightheadedness Respiratory: Reports: shortness of breath - lat ntei Gastrointestinal/Abdominal: Denies: abdominal pain Genitourinary: Denies: burning Objective Last 24 Hour Vital Signs Date Time Temp Pulse Resp B/P Pulse Ox O2 Delivery O2 Flow Rate FiO2 03/10/17 08:43 167/90 03/10/17 08:43 72 167/90 03/10/17 07:55 97.0 72 20 167/90 96 Room Air 03/10/17 04:00 98.2 63 18 145/85 99 Room Air 03/10/17 04:00 59 03/10/17 00:00 57 03/10/17 00:00 97.2 55 18 133/70 100 Room Air 03/09/17 20:00 97.4 59 18 123/70 95 Room Air 2.0 21 03/09/17 20:00 59 03/09/17 19:30 70 20 Room Air 21 03/09/17 16:00 55 03/09/17 15:35 97.0 54 18 106/61 96 Room Air 03/09/17 12:00 74 03/09/17 11:38 97.5 75 18 142/79 97 Room Air General Appearance: no apparent distress, alert Neck: supple Cardiovascular: normal rate, regular rhythm Respiratory/Chest: chest wall non-tender, lungs clear Abdomen: non tender, soft Extremities: no swelling Intake and Output 03/09/17 03/10/17 19:00 07:00 Intake Total 360 ml 150 ml Output Total 3100 ml Balance -2740 ml 150 ml Intake Oral 360 ml 150 ml Hemodialysis UF 3100 ml JUANITA RAE March 10, 2017 09:56
--- NOTE | 2017-03-11 17:59 | Discharge Summary ---
Discharge Summary Hospital Course Date of Admission Mar 03, 2017 at 13:30 Date of Discharge March 10, 2017 at 11:52 Admitting Diagnosis CHEST PAIN, ACS HPI Kyle Sinha is a 47 year old male who was admitted on Mar 03, 2017 at 13: 30 for Chest Pain, Acute Coronary Syndrome Hospital Course [id number] Discharge Discharge Disposition [facility] was [facility] to [facility] cardiac catheterization Discharge Diagnoses: Corine Jordan NP March 11, 2017 17:59
--- NOTE | 2017-03-12 04:48 | Discharge Summary 2 SIG ---
DATE OF ADMISSION: 03/03/2017 DATE OF DISCHARGE: 03/10/2017 CONSULTANTS: 1. Ronnell Daniel M.D. 2. Matthew Harrell M.D. BRIEF HOSPITAL COURSE: The patient is a 47-year-old male with history of end-stage renal disease, on hemodialysis, human immunodeficiency virus, presented to [facility] emergency department complaining of chest pain that started during dialysis. The symptoms started while at rest. Denies cough, congestion, and shortness of breath. On evaluation at ED, troponin was negative. EKG showed normal sinus rhythm. Chest x-ray showed bilateral mild pulmonary congestion. Due to the patient's risk factors, the patient was admitted for cardiac evaluation and serial cardiac enzyme monitoring and for nephrology evaluation for dialysis. Dr. Daniel was consulted. EKG was normal sinus rhythm with T-wave inversion in leads II, III, and aVF, which are new compared to prior EKG performed back in May 2014. There was subsequent increase in troponin to 3.59. Echocardiogram showed normal wall motion. The patient was then referred to [facility] for cardiac catheterization. He was given aspirin, Plavix, and statin. Lipid panel check has been stable. Blood glucose was monitored with sliding scale of insulin. The patient had one positive troponin. All 3 prior and 3 subsequent were all negative; very unusual for troponin to go down from 3.69 to less than 0.3 in such a short time. Dr. Harrell was consulted for inpatient hemodialysis. The patient stayed awaiting bed availability at [facility] for cardiac catheterization and finally on 03/10/2017, bed was available. 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 FINAL DIAGNOSES: 1. Atypical chest pain with prolonged troponin peak suggestive of non-ST elevated myocardial infarction. 2. Coronary artery disease with questionable recent percutaneous coronary intervention. 3. Diabetes mellitus. 4. Hypertension. 5. Hyperlipidemia. 6. End-stage renal disease, on hemodialysis. 7. Anemia of chronic kidney disease. 8. Cerebrovascular accident. 9. Hyperkalemia. Oswaldo Guzman M.D. I have been assigned to dictate discharge summary on this account and I was not involved in the patient's management. Corine Jordan N.P. DR: KENDRA JOB#: [id number] CC: LILIA
== END 2017-03-10 11:52 | disposition short-term general hospital (02) | DRG 190 ==
LOC: EDBD 11:20 → EMR 12:40 → 2E 13:30 → EDBEDREQ 14:23 → 2E 18:21
PROC: 5A1D60Z (ICD-10-PCS; principal; 2017-03-05)
DX: I21.4 Non-ST elevation (NSTEMI) myocardial infarction (principal); E11.9 Type 2 diabetes mellitus without complications; I12.0 Hypertensive chronic kidney disease with stage 5 chronic kidney disease or end stage renal disease; N18.6 End stage renal disease; E87.5 Hyperkalemia; D63.1 Anemia in chronic kidney disease; I25.10 Atherosclerotic heart disease of native coronary artery without angina pectoris; Z99.2 Dependence on renal dialysis; Z86.73 Personal history of transient ischemic attack (TIA), and cerebral infarction without residual deficits
CPT/HCPCS: 36415; 71010; 80048; 80053; 80061; 82550; 82553; 82962; 83036; 83735; 83880; 84100; 84443; 84484; 84550; 85025; 85610; 85730; 86703; 87324; 93005; 93306; 94664; J1815